=== PATIENT | male | born 1945 | race Caucasian/White ===

== ENCOUNTER 2022-05-26 18:08 | Emergency (ER) | payer OTHER ==
[~2022-05-26 18:08] MED LIST: Iopamidol 370 76% 100 ML VIAL ONE
[2022-05-26] MEDS ORDERED: Ondansetron PF 4 MG/2 ML Vial ONE (18:23)
[2022-05-26] MEDS ORDERED: Digoxin 0.5 MG/2 ML AMP ONE (18:35)
[2022-05-26 18:51] LABS: Prothrombin Time 21.4 sec (9.5-12.1)
[2022-05-26 18:52] LABS: #Basophils 0.1 10x3/uL (0.0-0.2); #Monocytes 1.5 10x3/uL (0.0-1.1); %Basophils 0.6 % (0.0-2.0); %Eosinophils 0.1 % (0.0-6.0); %Lymphocytes 3.9 % (18.0-47.0); %Monocytes 8.3 % (0.0-10.0); %Neutrophils 86.6 % (40.0-75.0); Hemoglobin 16.4 g/dL (13.5-17.5); Mean Corpuscular HGB CONC 35.1 g/dL (32.0-36.0); Mean Corpuscular Hemoglobin 33.7 pg (27.0-33.0); Mean Corpuscular Volume 95.9 fl (81.2-95.1); Mean Platelet Volume 9.4 fl (7.4-10.4); Platelet Count 265 10x3/uL (150-450); RBC Distribution Width 13.3 % (11.5-14.5); Red Blood Cell (RBC) Count 4.87 10x6/uL (4.32-5.72); White Blood Cell (WBC) Count 18.5 10x3/uL (3.5-10.5)
[2022-05-26 18:54] LABS: ALT (SGPT) 33 U/L (8-55); AST (SGOT) 48 U/L (5-34); Albumin 3.4 g/dL (3.4-4.8); Alkaline Phosphatase 66 U/L (40-110); Anion Gap 15 mmol/L (10-20); BUN (Urea Nitrogen) 17 mg/dL (8.4-25.7); Bilirubin, Total 2.8 mg/dL (0.2-1.2); CK (CPK) 146 U/L (30-200); Calc. Creatinine Clearance 0 mL/min (70-130); Calcium 8.3 mg/dL (7.8-10.44); Carbon Dioxide 21 mmol/L (23-31); Chloride 103 mmol/L (98-107); Estimated GFR 64; Globulin 3.7 g/dL (2.4-3.5); Glucose 223 mg/dL (83-110); Lipase 16 U/L (8-78); Potassium 3.7 mmol/L (3.5-5.1); Protein, Total 7.1 g/dL (5.8-8.1); Sodium 135 mmol/L (136-145)
[2022-05-26 19:17] LABS: CKMB 4.5 ng/mL (0-6.6)
[2022-05-26 20:11] LABS: Bilirubin Neg (Negative); Blood, Urine 25 (Negative); Glucose, Urine (Dipstick) 250 mg/dL (Negative); Ketone, Urine Negative (Negative); Leukocyte 25 (Negative); Nitrite Negative (Negative); Protein, Urine (Dipstick) 30 mg/dl (Neg-Trace)
[2022-05-26 20:18] LABS: Clarity Clear (Clear)
[2022-05-26 20:20] LABS: Bacteria/HPF None Seen HPF (None Seen); RBC/HPF 0-3 HPF (0-3); Squamous Epithelial 0-3 HPF (0-3); WBC/HPF 0-3 HPF (0-3)
[2022-05-26] MEDS ORDERED: Vancomycin 1 GM VIAL ONE (20:57)
[2022-05-26 21:24] LABS: SARS-CoV-2 NAA Rapid Test Not Detected (NotDetected)
[2022-05-26 21:45] LABS: Lactic Acid 2.1 mmol/L (0.5-2.2)
[2022-05-26] MEDS ORDERED: Acetaminophen 500 MG TAB ONE (23:13)
[2022-05-26] MEDS ORDERED: Furosemide 40 MG/4 ML VIAL ONE (23:13)
== END 2022-05-26 23:41 | disposition short-term general hospital (02) ==
LOC: EEVIPCON 18:08 → CSHERS 18:08
DX: N10 Acute pyelonephritis (principal); A41.9 Sepsis, unspecified organism; J90 Pleural effusion, not elsewhere classified; I50.9 Heart failure, unspecified; I25.10 Atherosclerotic heart disease of native coronary artery without angina pectoris
CPT/HCPCS: 36415; 71045; 71275; 74174; 80053; 81003; 81015; 82550; 82553; 83605; 83690; 83880; 84484; 85025; 85610; 85730; 87040; 87086; 87149; 87186; 93005; 96365; 96366; 96367; 96375; J1160; J1940; J2405; J3370; Q9967

== ENCOUNTER 2024-01-01 17:52 | Inpatient (IN) | payer OTHER ==
[2024-01-01] MEDS ORDERED: Furosemide 40 MG (4 mL) VIAL ONE (18:33)
[2024-01-01 18:36] LABS: #Basophils 0.09 10x3/uL (0.0-0.2); #Eosinphils 0.11 10x3/uL (0.0-0.5); #Monocytes 0.83 10x3/uL (0.0-1.1); #Neutrophils 5.17 10x3/uL (1.5-8.4); %Basophils 1.3 % (0.0-2.0); %Eosinophils 1.5 % (0.0-6.0); %Lymphocytes 12.4 % (18.0-47.0); %Monocytes 11.7 % (0.0-10.0); %Neutrophils 72.8 % (40.0-75.0); Hematocrit 44.4 % (38.8-50.0); Hemoglobin 14.9 g/dL (13.5-17.5); Mean Corpuscular HGB CONC 33.6 g/dL (32.0-36.0); Mean Corpuscular Hemoglobin 33.7 pg (27.0-33.0); Mean Corpuscular Volume 100.5 fL (81.2-95.1); Mean Platelet Volume 8.6 fL (7.4-10.4); Platelet Count 252 10x3/uL (150-450); RBC Distribution Width 13.9 % (11.5-14.5); Red Blood Cell (RBC) Count 4.42 10x6/uL (4.32-5.72); White Blood Cell (WBC) Count 7.1 10x3/uL (3.5-10.5)
[2024-01-01 18:55] LABS: ALT (SGPT) 19 U/L (8-55); AST (SGOT) 30 U/L (5-34); Albumin 2.9 g/dL (3.4-4.8); Alkaline Phosphatase 71 U/L (40-110); Anion Gap 16 mmol/L (10-20); BUN (Urea Nitrogen) 24 mg/dL (8.4-25.7); Bilirubin, Total 2.1 mg/dL (0.2-1.2); Calc. Creatinine Clearance 0 mL/min (70-130); Calcium 8.4 mg/dL (7.8-10.44); Carbon Dioxide 23 mmol/L (23-31); Chloride 105 mmol/L (98-107); Estimated GFR 49; Globulin 4.6 g/dL (2.4-3.5); Glucose 165 mg/dL (83-110); Magnesium 2.3 mg/dL (1.6-2.6); Potassium 4.1 mmol/L (3.5-5.1); Protein, Total 7.5 g/dL (5.8-8.1); Sodium 140 mmol/L (136-145)
[2024-01-01] MEDS ORDERED: Glucagon 1 MG/ML KIT IM PRN (20:21)
[2024-01-01] MEDS ORDERED: Guaifenesin DM 100-10/5 ML UDCUP PO PRN (20:21)
[2024-01-01] MEDS ORDERED: Acetaminophen 325 MG TAB PO PRN (20:21)
[2024-01-01] MEDS ORDERED: Dextrose 5% in Water 1,000 ML IV PRN (20:21)
[2024-01-01] MEDS ORDERED: Zolpidem Tartrate 5 MG TAB PO PRN (20:21)
[2024-01-01] MEDS ORDERED: Calcium Carbonate 500 MG ChewTAB PO PRN (20:21)
[2024-01-01] MEDS ORDERED: Senokot S 8.6-50 MG TAB PO PRN (20:21)
[2024-01-01] MEDS ORDERED: Ondansetron PF 4 MG/2 ML Vial IVP PRN (20:21)
[2024-01-01] MEDS ORDERED: Dextrose 50% Abboject 50 ML SYRINGE SLOW IVP PRN (20:21)
[2024-01-01] MEDS: Sacubitril 24MG/Valsartan 26 MG TAB PO SCH (23:38)
[2024-01-01] MEDS: Albumin 25% 25 GM (100 mL) BOT IVPB SCH (23:38)
[2024-01-01] MEDS: Famotidine 20 MG TAB PO SCH (23:40)
[2024-01-01] MEDS: Atorvastatin Calcium 40 MG TAB PO SCH (23:40)
[2024-01-01] MEDS: Carvedilol 6.25 MG TAB PO SCH (23:41)
[2024-01-02 04:44] LABS: INR-International Normal Ratio 1.3; PTT 30.7 sec (22.0-33.0); Prothrombin Time 13.6 sec (9.5-12.1)
[2024-01-02 04:51] LABS: Troponin I 0.019 ng/mL (< 0.028)
[2024-01-02 04:55] LABS: ALT (SGPT) 14 U/L (8-55); AST (SGOT) 22 U/L (5-34); Albumin 2.9 g/dL (3.4-4.8); Alkaline Phosphatase 58 U/L (40-110); Anion Gap 12 mmol/L (10-20); BUN (Urea Nitrogen) 23 mg/dL (8.4-25.7); Bilirubin, Direct 0.8 mg/dL (0.1-0.3); Bilirubin, Total 2.4 mg/dL (0.2-1.2); Calc. Creatinine Clearance 58 mL/min (70-130); Calcium 8.5 mg/dL (7.8-10.44); Carbon Dioxide 27 mmol/L (23-31); Chloride 105 mmol/L (98-107); Estimated GFR 51; Glucose 184 mg/dL (83-110); Magnesium 2.3 mg/dL (1.6-2.6); Potassium 4.3 mmol/L (3.5-5.1); Protein, Total 6.7 g/dL (5.8-8.1); Sodium 140 mmol/L (136-145)
[2024-01-02] MEDS: Furosemide 40 MG (4 mL) VIAL SLOW IVP SCH (05:46)
[2024-01-02] MEDS ORDERED: Lidocaine 1% PF 5 ML VIAL ONE (09:49)
[2024-01-02] MEDS ORDERED: Sodium Bicarbonate 2.5 MEQ/5 ML SDV ONE (09:49)
[2024-01-02] MEDS: Spironolactone 25 MG TAB PO SCH (11:31)
[2024-01-02] MEDS: Carvedilol 6.25 MG TAB PO SCH (11:31)
[2024-01-02] MEDS: Famotidine 20 MG TAB PO SCH (11:31)
[2024-01-02] MEDS: Clopidogrel Bisulfate 75 MG TAB PO SCH (11:31)
[2024-01-02] MEDS: Insulin Lispro 100 UNIT/ML 10 ML VIAL SC PRN (11:32)
[2024-01-02] MEDS: Empagliflozin 10 MG TAB PO SCH (11:32)
[2024-01-02 14:01] LABS: Body Fluid Source Ascites Body Fluid; Tube # EDTA
[2024-01-02 14:02] LABS: BF Color Yellow; Clarity Clear (Clear)
[2024-01-02 15:17] LABS: BF Segmented Neutrophils 7 %; Cell Count Non Hematic 15 %; Lymphocytes 78 %
[2024-01-02] MEDS: Rivaroxaban 10 MG TAB PO SCH (17:47)
[2024-01-02 18:31] LABS: Fluid, Protein 1.5 g/dL (Not Available)
[2024-01-02] MEDS: Atorvastatin Calcium 40 MG TAB PO SCH (21:21)
[2024-01-03] MEDS: Albumin 25% 25 GM (100 mL) BOT IVPB SCH (07:44)
[2024-01-03 07:57] LABS: ALT (SGPT) 15 U/L (8-55); AST (SGOT) 22 U/L (5-34); Albumin 2.8 g/dL (3.4-4.8); Alkaline Phosphatase 61 U/L (40-110); Anion Gap 12 mmol/L (10-20); BUN (Urea Nitrogen) 25 mg/dL (8.4-25.7); Bilirubin, Total 2.1 mg/dL (0.2-1.2); Calc. Creatinine Clearance 57 mL/min (70-130); Calcium 8.5 mg/dL (7.8-10.44); Carbon Dioxide 26 mmol/L (23-31); Chloride 104 mmol/L (98-107); Estimated GFR 50; Globulin 4.3 g/dL (2.4-3.5); Glucose 167 mg/dL (83-110); Potassium 4.1 mmol/L (3.5-5.1); Protein, Total 7.1 g/dL (5.8-8.1); Sodium 138 mmol/L (136-145)
[2024-01-03 11:02] VITALS: BMI 28.3
[2024-01-03] MEDS: Carvedilol 12.5 MG TAB PO SCH (21:52)
[2024-01-04 05:02] LABS: ALT (SGPT) 14 U/L (8-55); AST (SGOT) 20 U/L (5-34); Alkaline Phosphatase 53 U/L (40-110); Anion Gap 13 mmol/L (10-20); BUN (Urea Nitrogen) 27 mg/dL (8.4-25.7); Bilirubin, Total 1.6 mg/dL (0.2-1.2); Calc. Creatinine Clearance 70 mL/min (70-130); Calcium 8.7 mg/dL (7.8-10.44); Carbon Dioxide 24 mmol/L (23-31); Chloride 104 mmol/L (98-107); Estimated GFR 65; Globulin 3.7 g/dL (2.4-3.5); Glucose 161 mg/dL (83-110); Potassium 3.8 mmol/L (3.5-5.1); Protein, Total 6.7 g/dL (5.8-8.1); Sodium 137 mmol/L (136-145)
[2024-01-04 07:52] VITALS: BMI 28.3
[2024-01-04] MEDS: Furosemide 40 MG TAB PO SCH (14:14)
[2024-01-05 05:01] LABS: ALT (SGPT) 15 U/L (8-55); AST (SGOT) 22 U/L (5-34); Albumin 2.7 g/dL (3.4-4.8); Alkaline Phosphatase 53 U/L (40-110); Anion Gap 12 mmol/L (10-20); BUN (Urea Nitrogen) 32 mg/dL (8.4-25.7); Bilirubin, Total 1.4 mg/dL (0.2-1.2); Calc. Creatinine Clearance 70 mL/min (70-130); Calcium 8.4 mg/dL (7.8-10.44); Carbon Dioxide 25 mmol/L (23-31); Chloride 104 mmol/L (98-107); Estimated GFR 65; Globulin 3.6 g/dL (2.4-3.5); Glucose 136 mg/dL (83-110); Potassium 4.2 mmol/L (3.5-5.1); Protein, Total 6.3 g/dL (5.8-8.1); Sodium 137 mmol/L (136-145)
[2024-01-05 12:23] VITALS: BP 90/58; TEMP 97.5
== END 2024-01-05 16:00 | DRG 291 ==
LOC: EEVIPCON 17:52 → CSHERS 17:52 → CSHTELE 20:21
PROVIDERS: ADMIT Student in an Organized Health Care Education/Training Program; ATTEND Family Medicine
PROC: 0W9G3ZZ Drainage of Peritoneal Cavity, Percutaneous Approach (ICD-10-PCS; principal; 2024-01-02)
PROC: 30233J1 Transfusion of Nonautologous Serum Albumin into Peripheral Vein, Percutaneous Approach (ICD-10-PCS; 2024-01-02)
DX: I11.0 Hypertensive heart disease with heart failure (principal); I50.43 Acute on chronic combined systolic (congestive) and diastolic (congestive) heart failure; L89.223 Pressure ulcer of left hip, stage 3; J96.01 Acute respiratory failure with hypoxia; N17.9 Acute kidney failure, unspecified; I48.91 Unspecified atrial fibrillation; E11.9 Type 2 diabetes mellitus without complications; E78.5 Hyperlipidemia, unspecified; K70.31 Alcoholic cirrhosis of liver with ascites; I25.10 Atherosclerotic heart disease of native coronary artery without angina pectoris; Z90.49 Acquired absence of other specified parts of digestive tract; Z98.890 Other specified postprocedural states; Z95.810 Presence of automatic (implantable) cardiac defibrillator; Z87.891 Personal history of nicotine dependence
CPT/HCPCS: 36415; 36416; 49083; 71045; 76705; 80048; 80053; 80076; 82042; 82945; 83735; 83880; 84157; 84443; 84484; 85025; 85610; 85730; 88112; 88305; 89051; 93005; 93306; 94760; 94762; 96374; 97139; J1815; J1940; P9047

== ENCOUNTER 2024-02-15 09:06 | Emergency (ER) | payer OTHER ==
[2024-02-15] MEDS ORDERED: Furosemide 40 MG (4 mL) VIAL ONE ×2 (10:22→13:16)
[2024-02-15 10:42] LABS: #Basophils 0.09 10x3/uL (0.0-0.2); #Monocytes 0.91 10x3/uL (0.0-1.1); #Neutrophils 4.67 10x3/uL (1.5-8.4); %Basophils 1.3 % (0.0-2.0); %Eosinophils 5.6 % (0.0-6.0); %Lymphocytes 15.2 % (18.0-47.0); %Monocytes 12.7 % (0.0-10.0); %Neutrophils 64.9 % (40.0-75.0); Hematocrit 40.3 % (38.8-50.0); Hemoglobin 12.9 g/dL (13.5-17.5); Mean Corpuscular Hemoglobin 33.9 pg (27.0-33.0); Mean Corpuscular Volume 105.8 fL (81.2-95.1); Platelet Count 289 10x3/uL (150-450); RBC Distribution Width 14.9 % (11.5-14.5); Red Blood Cell (RBC) Count 3.81 10x6/uL (4.32-5.72); White Blood Cell (WBC) Count 7.2 10x3/uL (3.5-10.5)
[2024-02-15 10:58] LABS: ALT (SGPT) 28 U/L (8-55); AST (SGOT) 40 U/L (5-34); Albumin 2.3 g/dL (3.4-4.8); Alkaline Phosphatase 84 U/L (40-110); Anion Gap 10 mmol/L (10-20); BUN (Urea Nitrogen) 18 mg/dL (8.4-25.7); Bilirubin, Total 1.5 mg/dL (0.2-1.2); Calc. Creatinine Clearance 0 mL/min (70-130); Calcium 8.2 mg/dL (7.8-10.44); Carbon Dioxide 26 mmol/L (23-31); Chloride 109 mmol/L (98-107); Estimated GFR 85; Globulin 5.1 g/dL (2.4-3.5); Glucose 145 mg/dL (83-110); Lipase 55 U/L (8-78); Potassium 3.9 mmol/L (3.5-5.1); Protein, Total 7.4 g/dL (5.8-8.1); Sodium 141 mmol/L (136-145)
[2024-02-15 11:02] LABS: Troponin I 0.024 ng/mL (< 0.028)
== END 2024-02-15 19:19 | disposition short-term general hospital (02) ==
LOC: CSHERS 09:06 → EEVIPCON 09:06 → CSHERS 19:19
DX: I11.0 Hypertensive heart disease with heart failure (principal); I50.9 Heart failure, unspecified; J81.1 Chronic pulmonary edema; R60.9 Edema, unspecified; R09.02 Hypoxemia; E11.9 Type 2 diabetes mellitus without complications; I25.2 Old myocardial infarction; I25.10 Atherosclerotic heart disease of native coronary artery without angina pectoris; I48.91 Unspecified atrial fibrillation; Z95.5 Presence of coronary angioplasty implant and graft
CPT/HCPCS: 36415; 71045; 80053; 83605; 83690; 83880; 84484; 85025; 93005; 96374; 96376; J1940